=== PATIENT | female | born 1955 | race Caucasian/White ===

== ENCOUNTER 2018-09-27 01:17 | Emergency (ER) | payer SELFPAY ==
[~2018-09-27] VITALS: Ht 162.6 cm; Wt 52.7 kg
[~2018-09-27 01:17] MED LIST: AMBIEN10 MG PO; BACLOFEN10 MG PO; BACTROBAN CREAM15 GM TOPICAL; DEPAKOTE500 MG PO; DEXTROSTAT5 MG PO; FIORICET; FIORICET/ESGIC1 TAB PO; FUROSEMIDE40 MG PO; HYDROCODON-ACE1 EAC7 PO; HYDROCODONE-APA1 TAB PO; PHENERGAN25 M1
[2018-09-27 01:25] VITALS: Ht 162.6 cm; Wt 52.7 kg
[2018-09-27 01:59] VITALS: BP 132/64
== END 2018-09-27 02:00 | disposition home or self-care (01) ==
LOC: D.ER 01:17
DX: S80.811A Abrasion, right lower leg, initial encounter (principal); X58.XXXA Exposure to other specified factors, initial encounter; Y93.89 Activity, other specified; Y92.89 Other specified places as the place of occurrence of the external cause